=== PATIENT | male | born 1980 | race Caucasian/White ===

== ENCOUNTER 2022-07-30 13:38 | Inpatient (IN) | payer OTHER ==
[~2022-07-30] VITALS: Ht 172.7 cm; Wt 71.7 kg
[2022-07-30] MEDS ORDERED: ONDANSETRON HCL 4MG/2ML INJ IM NR (15:12)
[2022-07-30] MEDS ORDERED: ONDANSETRON HCL 4MG/2ML INJ IM STA (15:12)
[2022-07-30] MEDS ORDERED: MORPHINE SULFATE 4 MG/ML CPJ (NOT FOR IM USE) IV NR (15:12)
[2022-07-30] MEDS ORDERED: MORPHINE SULFATE 4 MG/ML CPJ (NOT FOR IM USE) IV STA (15:12)
[2022-07-30] MEDS ORDERED: SODIUM CHLORIDE 0.9% 1,000 ML IV ONE ×2 (15:15→18:00)
[2022-07-30] MEDS ORDERED: CEFTRIAXONE 2 G PREMIX 50 ML IV ONE (17:30)
[2022-07-30 17:31] LABS: HEMATOCRIT. 43.9 % (42.0-52.0); HEMOGLOBIN. 13.6 g/dL (14.0-18.0); MEAN CORPUSCULAR HEMOGLOBIN 29.6 pg (28.0-32.0); MEAN CORPUSCULAR VOLUME 95.7 fL (80.0-94.0); MEAN PLATELET VOLUME 7.1 fl (7.4-10.4); PLATELET 485 x1000/uL (130-400); RED BLOOD CELL COUNT 4.59 mill/uL (4.7-6.1)
[2022-07-30 17:35] LABS: CHLORIDE 95 mEq/L (98-107)
[2022-07-30] MEDS: OLANZAPINE 10 MG/VIAL IM ONE ×2 (18:29→19:30)
[2022-07-30 18:38] LABS: PLATELET ESTIMATE INCREASED
[2022-07-30] MEDS ORDERED: VANCOMYCIN 1G PREMIX 200 ML IV NR (18:45)
[2022-07-30] MEDS ORDERED: CLINDAMYCIN 600MG PREMIX 50 ML IV NR (19:00)
[2022-07-30] MEDS ORDERED: METOCLOPRAMIDE HCL 10MG/2ML VIAL IV ONE (19:00)
[2022-07-30] MEDS ORDERED: ETOMIDATE 2MG/ML 10ML VIAL IV ONE ×2 (20:00→21:45)
[2022-07-30] MEDS ORDERED: SUCCINYLCHOLINE CHLORIDE 200MG/10ML IV ONE (20:00)
[2022-07-30] MEDS ORDERED: FENTANYL CITRATE/PF 50MCG/ML 2ML VIAL IV ONE (20:15)
[2022-07-30] MEDS ORDERED: PROPOFOL 10MG/ML 100ML 100 ML IV ONE (20:15)
[2022-07-30] MEDS ORDERED: PROPOFOL 200MG/20ML VIAL IV ONE (20:15)
[2022-07-30] MEDS ORDERED: FENTANYL 2500MCG/250ML PMX 250 ML IV ONE (20:15)
[2022-07-30 21:23] LABS: BG BASE EXCESS -30.7 mmol/L (-2.0-2.0); BG CARBOXYHEMOGLOBIN 0.4 % (0.5-1.5); BG DEOXYHEMOGLOBIN 0.4 % (0.0-5.0); BG FRACTION INSPIRED OXYGEN 60; BG HCO3 ACT 2.5 mmol/L (22.0-26.0); BG METHEMOGLOBIN 0.6 % (0.0-1.5); BG OXYGEN SATURATION 99.6 % (92.0-98.5); BG OXYHEMOGLOBIN 98.6 % (94.0-97.0); BG PCO2 15.9 mmHg (35.0-45.0); BG PH 6.821 (7.350-7.450); BG PO2 307.2 mmHg (75.0-100.0); BG SAMPLE SITE RIGHT RADIAL; BG TOTAL HEMOGLOBIN 13.2 g/dL (12.0-18.0); BG VENT MODE VENT - AC
[2022-07-30] MEDS ORDERED: SODIUM BICARBONATE 8.4% 1 MEQ/ML 50ML SYR IV ONE (21:45)
[2022-07-30] MEDS ORDERED: SODIUM BICARBONATE 150 MEQ in DEXTROSE 5% WATER 1,000 ML IV SCH (21:45)
[2022-07-30] MEDS ORDERED: INSULIN REGULAR 100U/100ML PMX 100 ML IV NR ×2 (22:30)
[2022-07-30 22:36] LABS: BG BASE EXCESS -29.2 mmol/L (-2.0-2.0); BG CARBOXYHEMOGLOBIN 0.4 % (0.5-1.5); BG DEOXYHEMOGLOBIN 3.1 % (0.0-5.0); BG FRACTION INSPIRED OXYGEN 40; BG HCO3 ACT 2.7 mmol/L (22.0-26.0); BG METHEMOGLOBIN 0.7 % (0.0-1.5); BG OXYGEN SATURATION 96.9 % (92.0-98.5); BG OXYHEMOGLOBIN 95.8 % (94.0-97.0); BG PCO2 14.7 mmHg (35.0-45.0); BG PH 6.884 (7.350-7.450); BG PO2 124.5 mmHg (75.0-100.0); BG SAMPLE SITE LEFT BRACHIAL; BG TOTAL HEMOGLOBIN 12.9 g/dL (12.0-18.0); BG VENT MODE VENT - AC
[2022-07-30] MEDS ORDERED: PROPOFOL 10MG/ML 100ML 100 ML IV PRN (23:45)
[2022-07-31] VITALS (70 sets, daily range): BP systolic 92–154; BP diastolic 57–86
[2022-07-31 01:09] LABS: CHLORIDE 97 mEq/L (98-107)
[2022-07-31 01:26] LABS: PHOSPHORUS 8.2 mg/dL (2.5-4.9)
[2022-07-31] MEDS ORDERED: IOHEXOL-300 100 ML BOTTLE ONE (01:47)
[2022-07-31 02:04] LABS: CHLORIDE 94 mEq/L (98-107)
[2022-07-31 02:11] LABS: PHOSPHORUS 7.2 mg/dL (2.5-4.9)
[2022-07-31 04:37] LABS: BG BASE EXCESS -17.4 mmol/L (-2.0-2.0); BG CARBOXYHEMOGLOBIN 0.6 % (0.5-1.5); BG DEOXYHEMOGLOBIN 0.6 % (0.0-5.0); BG FRACTION INSPIRED OXYGEN 40; BG HCO3 ACT 7.9 mmol/L (22.0-26.0); BG METHEMOGLOBIN 0.4 % (0.0-1.5); BG OXYGEN SATURATION 99.4 % (92.0-98.5); BG OXYHEMOGLOBIN 98.4 % (94.0-97.0); BG PH 7.237 (7.350-7.450); BG PO2 178.8 mmHg (75.0-100.0); BG SAMPLE SITE LEFT BRACHIAL; BG TOTAL HEMOGLOBIN 12.7 g/dL (12.0-18.0); BG VENT MODE VENT - AC
[2022-07-31] MEDS ORDERED: SODIUM BICARBONATE 8.4% 1 MEQ/ML 50ML SYR IV NR (04:42)
[2022-07-31] MEDS ORDERED: SODIUM BICARBONATE 150 MEQ in SODIUM CHLORIDE 0.45% 1,000 ML IV SCH (04:45)
[2022-07-31] MEDS: PROPOFOL 10MG/ML 100ML 100 ML IV PRN ×4 (05:56→19:28)
[2022-07-31] MEDS: FENTANYL 2500MCG/250ML PMX 250 ML IV PRN ×2 (05:57→17:17)
[2022-07-31] MEDS ORDERED: SODIUM CHLORIDE 0.9% 1,000 ML IV SCH (07:15)
[2022-07-31 07:16] LABS: CHLORIDE 97 mEq/L (98-107)
[2022-07-31 07:33] LABS: PHOSPHORUS 3.8 mg/dL (2.5-4.9)
[2022-07-31] MEDS ORDERED: DEXTROSE 50% WATER 50ML SYRINGE IV PRN ×2 (07:45)
[2022-07-31 08:06] LABS: BG BASE EXCESS -2.9 mmol/L (-2.0-2.0); BG CARBOXYHEMOGLOBIN 0.3 % (0.5-1.5); BG DEOXYHEMOGLOBIN 1.6 % (0.0-5.0); BG FRACTION INSPIRED OXYGEN 30; BG HCO3 ACT 20.7 mmol/L (22.0-26.0); BG METHEMOGLOBIN 0.1 % (0.0-1.5); BG OXYGEN SATURATION 98.4 % (92.0-98.5); BG PCO2 32.6 mmHg (35.0-45.0); BG PH 7.421 (7.350-7.450); BG PO2 118.4 mmHg (75.0-100.0); BG SAMPLE SITE LEFT RADIAL; BG TOTAL HEMOGLOBIN 12.4 g/dL (12.0-18.0); BG TOTAL RESPIRATORY RATE 24 b/min; BG VENT MODE VENT - AC
[2022-07-31] MEDS: BLOOD SUGAR DIAGNOSTIC STRIP TEST SCH ×11 (08:29→20:56)
[2022-07-31] MEDS ORDERED: ENOXAPARIN 40MG/0.4ML SYR SUBCUT SCH (09:00)
[2022-07-31] MEDS ORDERED: PANTOPRAZOLE SODIUM 40 MG/VIAL IV SCH (09:00)
[2022-07-31] MEDS ORDERED: INSULIN REGULAR 100U/100ML PMX 100 ML IV SCH (09:00)
[2022-07-31] MEDS: VANCOMYCIN 1.25GM PMX (XELLIA) 250 ML IV SCH ×2 (09:47→21:23)
[2022-07-31 10:06] LABS: CHLORIDE 103 mEq/L (98-107)
[2022-07-31 10:13] LABS: HDL CHOLESTEROL 14 mg/dL (40-59); LDL CHOLESTEROL 52 mg/dL (5-100); TOTAL IRON BINDING CAPACITY 155 ug/dL (250-450)
[2022-07-31 10:50] LABS: VITAMIN B12 SERUM 1749 pg/mL (211-911)
[2022-07-31] MEDS ORDERED: SODIUM CHLORIDE 0.45% 1,000 ML IV SCH ×2 (11:15→16:45)
[2022-07-31 11:29] LABS: FOLIC ACID (FOLATE) SERUM > 20.00 ng/mL (>5.38)
[2022-07-31] MEDS ORDERED: POTASSIUM CHLORIDE 20MEQ TABLET SR PO NR (11:30)
[2022-07-31] MEDS ORDERED: POTASSIUM CHLORIDE INJ 40 MEQ in DEXT 5% WATER 250 ML IV ONE ×2 (11:30→17:15)
[2022-07-31] MEDS ORDERED: SODIUM CHL 0.9% + KCL 20MEQ/L 1,000 ML IV SCH (13:00)
[2022-07-31] MEDS: KCL 20MEQ/100ML X 2 FOR TOTAL KCL 40MEQ/200ML IV SCH ×4 (13:08→21:24)
[2022-07-31] MEDS: PIPERACILLIN/TAZOBACTAM 3.375G in DEXT 5% WATER 50ML IV SCH ×2 (13:08→21:23)
[2022-07-31] MEDS ORDERED: DEXT 5%/0.45% NACL 1000ML 1,000 ML IV SCH (14:30)
[2022-07-31 15:32] LABS: CLARITY URINE TURBID (CLEAR); COLOR URINE YELLOW (YELLOW); KETONES URINE 1+ (NEGATIVE); LEUKOCYTE ESTERASE URINE NEGATIVE (NEGATIVE); NITRITE URINE NEGATIVE (NEGATIVE); OCCULT BLOOD URINE TRACE (NEGATIVE); PROTEIN URINE 1+ (NEGATIVE); SPECIFIC GRAVITY URINE 1.026 (1.005-1.030); UROBILINOGEN URINE 0.2 E.U./dL (0.2-1.0)
[2022-07-31 15:48] LABS: CHLORIDE 111 mEq/L (98-107)
[2022-07-31 15:53] LABS: INR 1.2; PROTHROMBIN TIME 12.4 sec (9.6-11.0)
[2022-07-31 15:54] LABS: ETHANOL BLOOD < 10 mg/dL
[2022-07-31 16:57] LABS: *AMPHETAMINES SCREEN URINE NEGATIVE (NEGATIVE); *BARBITURATES SCREEN URINE NEGATIVE (NEGATIVE); *BENZODIAZEPINES SCREEN URINE NEGATIVE (NEGATIVE); *COCAINE SCREEN URINE NEGATIVE (NEGATIVE); CANNABINOID URINE SCREEN PRESUMTIVE POSITIVE (NEGATIVE); METHADONE URINE SCREEN NEGATIVE (NEGATIVE); OPIATES URINE SCREEN PRESUMTIVE POSITIVE (NEGATIVE); PHENCYCLIDINE URINE SCREEN NEGATIVE (NEGATIVE)
[2022-07-31] MEDS: PANTOPRAZOLE SODIUM 40 MG/VIAL IV SCH (17:15)
[2022-07-31 17:25] LABS: HEMATOCRIT. 32.2 % (42.0-52.0); HEMOGLOBIN. 11.1 g/dL (14.0-18.0); MEAN CORPUSCULAR HEMOGLOBIN 29.6 pg (28.0-32.0); MEAN CORPUSCULAR VOLUME 85.5 fL (80.0-94.0); MEAN PLATELET VOLUME 6.4 fl (7.4-10.4); PLATELET 334 x1000/uL (130-400); RED BLOOD CELL COUNT 3.76 mill/uL (4.7-6.1); RED CELL DISTRIBUTION WIDTH 13.4 % (11.6-14.6)
[2022-07-31] MEDS: INSULIN LISPRO 100 UNITS/ML SUBCUT SCH ×2 (18:20→21:24)
[2022-07-31 18:24] LABS: PLATELET ESTIMATE NORMAL
[2022-07-31] MEDS: INSULIN GLARGINE 100 UNITS/ML SUBCUT SCH (21:25)
[2022-07-31 23:46] LABS: CHLORIDE 113 mEq/L (98-107)
[2022-08-01] VITALS (37 sets, daily range): BP systolic 96–169; BP diastolic 59–98
[2022-08-01] MEDS: PROPOFOL 10MG/ML 100ML 100 ML IV PRN ×4 (00:10→20:11)
[2022-08-01] MEDS ORDERED: KCL 20MEQ/100ML PREMIX 100 ML IV NR (01:00)
[2022-08-01] MEDS: BLOOD SUGAR DIAGNOSTIC STRIP TEST SCH ×7 (02:00→21:17)
[2022-08-01] MEDS: INSULIN LISPRO 100 UNITS/ML SUBCUT SCH ×6 (02:10→21:53)
[2022-08-01] MEDS: FENTANYL 2500MCG/250ML PMX 250 ML IV PRN ×2 (04:58→17:00)
[2022-08-01] MEDS ORDERED: PROPOFOL 10MG/ML 100ML 100 ML IV PRN (05:00)
[2022-08-01 05:45] LABS: HEMATOCRIT. 33.8 % (42.0-52.0); HEMOGLOBIN. 11.5 g/dL (14.0-18.0); MEAN CORPUSCULAR HEMOGLOBIN 29.3 pg (28.0-32.0); MEAN CORPUSCULAR VOLUME 86.3 fL (80.0-94.0); MEAN PLATELET VOLUME 6.9 fl (7.4-10.4); PLATELET 339 x1000/uL (130-400); RED BLOOD CELL COUNT 3.92 mill/uL (4.7-6.1)
[2022-08-01 05:59] LABS: INR 1.1; PROTHROMBIN TIME 11.9 sec (9.6-11.0)
[2022-08-01] MEDS: PIPERACILLIN/TAZOBACTAM 3.375G in DEXT 5% WATER 50ML IV SCH ×3 (06:01→21:50)
[2022-08-01 06:06] LABS: CHLORIDE 117 mEq/L (98-107)
[2022-08-01 06:23] LABS: PHOSPHORUS 1.1 mg/dL (2.5-4.9)
[2022-08-01 07:12] LABS: PLATELET ESTIMATE NORMAL
[2022-08-01 08:23] LABS: BG BASE EXCESS 3.4 mmol/L (-2.0-2.0); BG CARBOXYHEMOGLOBIN 0.3 % (0.5-1.5); BG DEOXYHEMOGLOBIN 1.4 % (0.0-5.0); BG FRACTION INSPIRED OXYGEN 30; BG HCO3 ACT 25.5 mmol/L (22.0-26.0); BG METHEMOGLOBIN 0.3 % (0.0-1.5); BG OXYGEN SATURATION 98.6 % (92.0-98.5); BG PCO2 30.9 mmHg (35.0-45.0); BG PH 7.535 (7.350-7.450); BG PO2 129.9 mmHg (75.0-100.0); BG SAMPLE SITE RIGHT RADIAL; BG TOTAL HEMOGLOBIN 12.1 g/dL (12.0-18.0); BG VENT MODE VENT - AC
[2022-08-01] MEDS ORDERED: LORAZEPAM 2MG/ML CPJ IV NR (09:30)
[2022-08-01] MEDS: PANTOPRAZOLE SODIUM 40 MG/VIAL IV SCH ×2 (10:07→17:35)
[2022-08-01] MEDS: DEXT 5%/0.45% NACL KCL 20MEQ/L 1,000 ML IV SCH ×2 (10:07→21:50)
[2022-08-01] MEDS: INSULIN GLARGINE 100 UNITS/ML SUBCUT SCH ×2 (10:08→21:51)
[2022-08-01] MEDS: MIDAZOLAM HCL 100 MG in SODIUM CHLORIDE 0.9% 80 ML IV PRN (10:41)
[2022-08-01] MEDS: VANCOMYCIN 1.25GM PMX (XELLIA) 250 ML IV SCH (10:56)
[2022-08-01] MEDS ORDERED: VANCOMYCIN 750MG PREMIX 150 ML IV SCH (12:00)
[2022-08-01] MEDS ORDERED: BUPIVACAINE HCL/PF 0.25% (2.5MG/ML) 10ML INFIL NR (19:30)
[2022-08-01] MEDS ORDERED: LIDOCAINE HCL 1% 20ML VIAL (Pyxis) INJ INFIL NR (19:30)
[2022-08-01] MEDS ORDERED: ARIP10TA56 PO (20:29)
[2022-08-01] MEDS ORDERED: BUPR-114 PO (20:29)
[2022-08-01] MEDS ORDERED: QUET100T34 PO (20:29)
[2022-08-01] MEDS ORDERED: OXCA300T31 PO (20:29)
[2022-08-01] MEDS ORDERED: INSLIS SUBCUT (20:29)
[2022-08-01] MEDS ORDERED: HYDR-4001 PO (20:30)
[2022-08-01] MEDS ORDERED: INSU100I28 SUBCUT (20:30)
[2022-08-01] MEDS ORDERED: GABA-532 PO (20:30)
[2022-08-02] VITALS (50 sets, daily range): BP systolic 98–181; BP diastolic 25–156
[2022-08-02] MEDS: VANCOMYCIN 750MG PREMIX 150 ML IV SCH ×2 (00:13→12:12)
[2022-08-02] MEDS: BLOOD SUGAR DIAGNOSTIC STRIP TEST SCH ×6 (01:48→22:00)
[2022-08-02] MEDS: INSULIN LISPRO 100 UNITS/ML SUBCUT SCH ×6 (02:06→22:00)
[2022-08-02] MEDS: FENTANYL 2500MCG/250ML PMX 250 ML IV PRN (03:39)
[2022-08-02 05:26] LABS: HEMATOCRIT. 34.4 % (42.0-52.0); HEMOGLOBIN. 11.6 g/dL (14.0-18.0); MEAN CORPUSCULAR HEMOGLOBIN 29.4 pg (28.0-32.0); MEAN CORPUSCULAR VOLUME 87.2 fL (80.0-94.0); MEAN PLATELET VOLUME 6.6 fl (7.4-10.4); PLATELET 276 x1000/uL (130-400); RED BLOOD CELL COUNT 3.95 mill/uL (4.7-6.1)
[2022-08-02 05:29] LABS: CHLORIDE 119 mEq/L (98-107)
[2022-08-02] MEDS ORDERED: PROPOFOL 10MG/ML 100ML 100 ML IV PRN (05:30)
[2022-08-02] MEDS: PIPERACILLIN/TAZOBACTAM 3.375G in DEXT 5% WATER 50ML IV SCH ×3 (06:25→22:03)
[2022-08-02] MEDS: PROPOFOL 10MG/ML 100ML 100 ML IV PRN (07:17)
[2022-08-02] MEDS: PANTOPRAZOLE SODIUM 40 MG/VIAL IV SCH ×2 (09:11→17:00)
[2022-08-02] MEDS: KCL 20MEQ/100ML PREMIX 100 ML IV SCH ×2 (09:11→12:12)
[2022-08-02] MEDS: INSULIN GLARGINE 100 UNITS/ML SUBCUT SCH ×2 (09:12→22:00)
[2022-08-02] MEDS: MIDAZOLAM HCL 100 MG in SODIUM CHLORIDE 0.9% 80 ML IV PRN (09:17)
[2022-08-02 09:53] LABS: BG BASE EXCESS 2.5 mmol/L (-2.0-2.0); BG CARBOXYHEMOGLOBIN 0.4 % (0.5-1.5); BG DEOXYHEMOGLOBIN 1.1 % (0.0-5.0); BG FRACTION INSPIRED OXYGEN 30; BG HCO3 ACT 25.4 mmol/L (22.0-26.0); BG METHEMOGLOBIN 0.2 % (0.0-1.5); BG OXYGEN SATURATION 98.9 % (92.0-98.5); BG OXYHEMOGLOBIN 98.3 % (94.0-97.0); BG PCO2 33.6 mmHg (35.0-45.0); BG PH 7.496 (7.350-7.450); BG PO2 146.2 mmHg (75.0-100.0); BG SAMPLE SITE RIGHT RADIAL; BG TOTAL HEMOGLOBIN 12.4 g/dL (12.0-18.0); BG VENT MODE VENT - AC
[2022-08-02] MEDS ORDERED: POTASSIUM CHLORIDE INJ 40 MEQ in DEXT 5% WATER 500 ML IV NR (10:00)
[2022-08-02] MEDS ORDERED: LORAZEPAM 2MG/ML CPJ IV PRN (10:15)
[2022-08-02 10:26] LABS: PLATELET ESTIMATE NORMAL
[2022-08-02 11:10] LABS: BG BASE EXCESS 2.5 mmol/L (-2.0-2.0); BG CARBOXYHEMOGLOBIN 0.9 % (0.5-1.5); BG DEOXYHEMOGLOBIN 2.1 % (0.0-5.0); BG FRACTION INSPIRED OXYGEN 30; BG HCO3 ACT 26.7 mmol/L (22.0-26.0); BG METHEMOGLOBIN 0.2 % (0.0-1.5); BG OXYGEN SATURATION 97.9 % (92.0-98.5); BG OXYHEMOGLOBIN 96.8 % (94.0-97.0); BG PCO2 39.5 mmHg (35.0-45.0); BG PH 7.447 (7.350-7.450); BG PO2 101.3 mmHg (75.0-100.0); BG SAMPLE SITE RIGHT RADIAL; BG TOTAL HEMOGLOBIN 13.8 g/dL (12.0-18.0); BG VENT MODE MASK - CPAP
[2022-08-02] MEDS ORDERED: HALOPERIDOL LACTATE 5MG/ML VIAL IM PRN (11:30)
[2022-08-02] MEDS: HALOPERIDOL LACTATE 5MG/ML VIAL IM PRN ×2 (11:38→19:34)
[2022-08-02] MEDS: DEXTROSE 5% WATER 1,000 ML IV SCH (12:13)
[2022-08-02] MEDS ORDERED: POTASSIUM PHOS,M-BASIC-D-BASIC 30 MMOL in DEXT 5% WATER 500 ML IV ONE (12:30)
[2022-08-02] MEDS: LORAZEPAM 2MG/ML CPJ IV PRN ×3 (13:06→22:03)
[2022-08-02] MEDS ORDERED: HALOPERIDOL LACTATE 5MG/ML VIAL IM NR (13:30)
[2022-08-02] MEDS ORDERED: OLANZAPINE 10 MG/VIAL IM NR (23:00)
[2022-08-03] VITALS (11 sets, daily range): BP systolic 43–178; BP diastolic 27–95
[2022-08-03] MEDS: VANCOMYCIN 750MG PREMIX 150 ML IV SCH ×2 (00:40→12:00)
[2022-08-03] MEDS: DEXTROSE 5% WATER 1,000 ML IV SCH ×2 (00:41→15:03)
[2022-08-03] MEDS ORDERED: OLANZAPINE 10 MG/VIAL IM PRN (01:00)
[2022-08-03] MEDS: BLOOD SUGAR DIAGNOSTIC STRIP TEST SCH ×6 (02:00→21:37)
[2022-08-03] MEDS: INSULIN LISPRO 100 UNITS/ML SUBCUT SCH ×6 (02:00→21:39)
[2022-08-03] MEDS: HALOPERIDOL LACTATE 5MG/ML VIAL IM PRN ×3 (04:12→21:37)
[2022-08-03 06:36] LABS: BASOPHILS % 0.5 % (0.0-2.0); EOSINOPHILS % 0.9 % (0.0-5.0); HEMATOCRIT. 34.2 % (42.0-52.0); HEMOGLOBIN. 11.4 g/dL (14.0-18.0); LYMPHOCYTES % 21.3 % (20.0-50.0); MEAN CORPUSCULAR HEMOGLOBIN 29.1 pg (28.0-32.0); MEAN CORPUSCULAR VOLUME 87.2 fL (80.0-94.0); MONOCYTES % 8.3 % (2.0-8.0); PLATELET 286 x1000/uL (130-400); RED BLOOD CELL COUNT 3.92 mill/uL (4.7-6.1); RED CELL DISTRIBUTION WIDTH 13.9 % (11.6-14.6)
[2022-08-03] MEDS: PIPERACILLIN/TAZOBACTAM 3.375G in DEXT 5% WATER 50ML IV SCH ×3 (06:41→21:37)
[2022-08-03 06:45] LABS: CHLORIDE 111 mEq/L (98-107)
[2022-08-03 06:56] LABS: PHOSPHORUS 3.5 mg/dL (2.5-4.9)
[2022-08-03] MEDS: RISPERIDONE 1MG TABLET PO SCH (07:02)
[2022-08-03] MEDS: PANTOPRAZOLE SODIUM 40 MG/VIAL IV SCH ×2 (08:45→18:34)
[2022-08-03] MEDS: LORAZEPAM 2MG/ML CPJ IV PRN ×3 (08:45→19:59)
[2022-08-03] MEDS ORDERED: RISPERIDONE 1MG TABLET PO SCH (09:00)
[2022-08-03] MEDS: KCL 20MEQ/100ML PREMIX 100 ML IV SCH ×2 (11:12→15:10)
[2022-08-03] MEDS: INSULIN GLARGINE 100 UNITS/ML SUBCUT SCH ×2 (11:13→21:38)
[2022-08-03] MEDS ORDERED: MAGNESIUM 1 G PREMIX 100 ML IV NR (15:00)
[2022-08-04] VITALS (10 sets, daily range): BP systolic 131–179; BP diastolic 67–114
[2022-08-04] MEDS: VANCOMYCIN 750MG PREMIX 150 ML IV SCH ×2 (00:01→11:32)
[2022-08-04] MEDS: LORAZEPAM 2MG/ML CPJ IV PRN ×3 (02:37→22:17)
[2022-08-04 05:49] LABS: BASOPHILS % 0.5 % (0.0-2.0); EOSINOPHILS % 1.5 % (0.0-5.0); HEMATOCRIT. 37.7 % (42.0-52.0); HEMOGLOBIN. 12.8 g/dL (14.0-18.0); LYMPHOCYTES % 23.8 % (20.0-50.0); MEAN CORPUSCULAR HEMOGLOBIN 29.3 pg (28.0-32.0); MEAN CORPUSCULAR VOLUME 86.2 fL (80.0-94.0); MEAN PLATELET VOLUME 7.3 fl (7.4-10.4); MONOCYTES % 9.3 % (2.0-8.0); NEUTROPHILS % 64.9 % (40.0-76.0); PLATELET 388 x1000/uL (130-400); RED BLOOD CELL COUNT 4.37 mill/uL (4.7-6.1); RED CELL DISTRIBUTION WIDTH 13.1 % (11.6-14.6)
[2022-08-04] MEDS: PIPERACILLIN/TAZOBACTAM 3.375G in DEXT 5% WATER 50ML IV SCH ×2 (05:54→13:27)
[2022-08-04 05:58] LABS: CHLORIDE 104 mEq/L (98-107)
[2022-08-04] MEDS: RISPERIDONE 1MG TABLET PO SCH ×2 (06:10→08:00)
[2022-08-04] MEDS: BLOOD SUGAR DIAGNOSTIC STRIP TEST SCH ×4 (07:51→21:00)
[2022-08-04] MEDS: PANTOPRAZOLE SODIUM 40 MG/VIAL IV SCH (08:00)
[2022-08-04] MEDS: INSULIN LISPRO 100 UNITS/ML SUBCUT SCH ×4 (08:01→22:04)
[2022-08-04] MEDS: INSULIN GLARGINE 100 UNITS/ML SUBCUT SCH ×2 (09:07→22:10)
[2022-08-04] MEDS ORDERED: QUETIAPINE FUMARATE 50MG TABLET PO SCH (12:00)
[2022-08-04] MEDS: OXCARBAZEPINE 300MG TABLET PO SCH ×2 (12:10→22:02)
[2022-08-04] MEDS: ARIPIPRAZOLE 5MG TABLET PO SCH (12:10)
[2022-08-04] MEDS: PANTOPRAZOLE 40MG DR TABLET PO SCH (13:27)
[2022-08-04] MEDS: GABAPENTIN 300MG CAPSULE PO SCH ×2 (13:27→22:01)
[2022-08-04] MEDS: LACTULOSE 20G/30ML UDC PO SCH ×2 (13:27→22:03)
[2022-08-04] MEDS: HYDROCODONE/ACETAMINOPHEN 5/325MG TABLET PO PRN (17:52)
[2022-08-04] MEDS ORDERED: NALOXONE HCL 0.4MG/ML VIAL IV PRN (18:00)
[2022-08-04] MEDS ORDERED: QUETIAPINE FUMARATE 25MG TABLET PO SCH (21:00)
[2022-08-04] MEDS: QUETIAPINE FUMARATE 50MG TABLET PO SCH (22:09)
[2022-08-04] MEDS: MORPHINE SULFATE 2 MG/ML CPJ (NOT FOR IM USE) IV PRN (22:17)
[2022-08-05] VITALS: BP 143/90
[2022-08-05] MEDS: VANCOMYCIN 750MG PREMIX 150 ML IV SCH ×3 (01:10→23:25)
[2022-08-05 04:00] VITALS: BP 139/86
[2022-08-05] MEDS: LACTULOSE 20G/30ML UDC PO SCH ×2 (05:59→17:56)
[2022-08-05] MEDS: GABAPENTIN 300MG CAPSULE PO SCH ×3 (05:59→22:04)
[2022-08-05] MEDS: INSULIN LISPRO 100 UNITS/ML SUBCUT SCH ×5 (06:02→21:59)
[2022-08-05] MEDS: PANTOPRAZOLE 40MG DR TABLET PO SCH (06:20)
[2022-08-05] MEDS: BLOOD SUGAR DIAGNOSTIC STRIP TEST SCH ×4 (06:32→21:00)
[2022-08-05 07:21] LABS: BASOPHILS % 0.9 % (0.0-2.0); HEMATOCRIT. 35.8 % (42.0-52.0); HEMOGLOBIN. 12.1 g/dL (14.0-18.0); LYMPHOCYTES % 20.1 % (20.0-50.0); MEAN CORPUSCULAR HEMOGLOBIN 29.1 pg (28.0-32.0); MEAN CORPUSCULAR VOLUME 86.4 fL (80.0-94.0); MEAN PLATELET VOLUME 7.3 fl (7.4-10.4); MONOCYTES % 8.4 % (2.0-8.0); NEUTROPHILS % 68.6 % (40.0-76.0); PLATELET 376 x1000/uL (130-400); RED BLOOD CELL COUNT 4.14 mill/uL (4.7-6.1); RED CELL DISTRIBUTION WIDTH 13.5 % (11.6-14.6)
[2022-08-05 08:00] VITALS: BP 136/85
[2022-08-05 08:01] LABS: CHLORIDE 99 mEq/L (98-107)
[2022-08-05] MEDS: OXCARBAZEPINE 300MG TABLET PO SCH ×2 (08:50→22:04)
[2022-08-05] MEDS: ARIPIPRAZOLE 5MG TABLET PO SCH (08:50)
[2022-08-05] MEDS: INSULIN GLARGINE 100 UNITS/ML SUBCUT SCH ×2 (10:34→22:21)
[2022-08-05 12:00] VITALS: BP 118/72
[2022-08-05 16:00] VITALS: BP 133/78
[2022-08-05 20:00] VITALS: BP 132/69
[2022-08-05] MEDS: INSULIN LISPRO 100 UNITS/ML SUBCUT NR ×2 (22:01→22:20)
[2022-08-05] MEDS: QUETIAPINE FUMARATE 50MG TABLET PO SCH (22:03)
[2022-08-05] MEDS: MORPHINE SULFATE 2 MG/ML CPJ (NOT FOR IM USE) IV PRN (23:25)
[2022-08-06] VITALS (7 sets, daily range): BP systolic 117–158; BP diastolic 60–83
[2022-08-06] MEDS: GABAPENTIN 300MG CAPSULE PO SCH ×3 (05:14→21:25)
[2022-08-06] MEDS: MORPHINE SULFATE 2 MG/ML CPJ (NOT FOR IM USE) IV PRN ×4 (05:23→22:39)
[2022-08-06] MEDS: BLOOD SUGAR DIAGNOSTIC STRIP TEST SCH ×4 (06:21→21:25)
[2022-08-06] MEDS: PANTOPRAZOLE 40MG DR TABLET PO SCH (06:22)
[2022-08-06 06:45] LABS: BASOPHILS % 0.6 % (0.0-2.0); HEMATOCRIT. 35.4 % (42.0-52.0); HEMOGLOBIN. 12.4 g/dL (14.0-18.0); LYMPHOCYTES % 17.5 % (20.0-50.0); MEAN CORPUSCULAR HEMOGLOBIN 29.7 pg (28.0-32.0); MEAN CORPUSCULAR VOLUME 85.2 fL (80.0-94.0); MEAN PLATELET VOLUME 7.1 fl (7.4-10.4); NEUTROPHILS % 68.9 % (40.0-76.0); PLATELET 428 x1000/uL (130-400); RED BLOOD CELL COUNT 4.16 mill/uL (4.7-6.1); RED CELL DISTRIBUTION WIDTH 13.6 % (11.6-14.6)
[2022-08-06] MEDS: INSULIN LISPRO 100 UNITS/ML SUBCUT SCH ×7 (07:20→21:00)
[2022-08-06] MEDS: OXCARBAZEPINE 300MG TABLET PO SCH ×2 (08:23→21:25)
[2022-08-06] MEDS: ARIPIPRAZOLE 5MG TABLET PO SCH (08:23)
[2022-08-06] MEDS: LACTULOSE 20G/30ML UDC PO SCH ×2 (09:00→17:34)
[2022-08-06] MEDS: INSULIN GLARGINE 100 UNITS/ML SUBCUT SCH ×2 (10:00→22:40)
[2022-08-06 10:41] LABS: CHLORIDE 99 mEq/L (98-107)
[2022-08-06] MEDS: VANCOMYCIN 750MG PREMIX 150 ML IV SCH (12:00)
[2022-08-06] MEDS: QUETIAPINE FUMARATE 50MG TABLET PO SCH (21:25)
[2022-08-06] MEDS: HYDROCODONE/ACETAMINOPHEN 5/325MG TABLET PO PRN (21:27)
[2022-08-07] VITALS: BP 125/86
[2022-08-07] MEDS: VANCOMYCIN 750MG PREMIX 150 ML IV SCH ×3 (00:52→23:54)
[2022-08-07] MEDS: MORPHINE SULFATE 2 MG/ML CPJ (NOT FOR IM USE) IV PRN ×5 (03:55→23:58)
[2022-08-07 04:00] VITALS: BP 125/74
[2022-08-07] MEDS: BLOOD SUGAR DIAGNOSTIC STRIP TEST SCH ×4 (06:23→21:39)
[2022-08-07] MEDS: GABAPENTIN 300MG CAPSULE PO SCH ×3 (06:23→21:32)
[2022-08-07 08:00] VITALS: BP 142/74
[2022-08-07] MEDS: FAMOTIDINE 20MG TABLET PO SCH ×2 (08:40→21:32)
[2022-08-07] MEDS: LACTULOSE 20G/30ML UDC PO SCH ×2 (08:40→17:00)
[2022-08-07] MEDS: OXCARBAZEPINE 300MG TABLET PO SCH ×2 (08:40→21:33)
[2022-08-07] MEDS: ARIPIPRAZOLE 5MG TABLET PO SCH (09:00)
[2022-08-07] MEDS: INSULIN GLARGINE 100 UNITS/ML SUBCUT SCH ×2 (10:00→21:41)
[2022-08-07 12:00] VITALS: BP 149/90
[2022-08-07] MEDS: INSULIN LISPRO 100 UNITS/ML SUBCUT SCH ×5 (12:20→21:41)
[2022-08-07] MEDS: BUPROPION HCL 100MG SR TABLET PO SCH (13:16)
[2022-08-07 16:00] VITALS: BP 149/84
[2022-08-07 20:00] VITALS: BP 118/87
[2022-08-07] MEDS: QUETIAPINE FUMARATE 50MG TABLET PO SCH (21:32)
[2022-08-07] MEDS: HYDROCODONE/ACETAMINOPHEN 5/325MG TABLET PO PRN (21:34)
[2022-08-08] VITALS: BP 140/87
[2022-08-08 04:00] VITALS: BP 126/83
[2022-08-08] MEDS: HYDROCODONE/ACETAMINOPHEN 5/325MG TABLET PO PRN ×3 (05:42→20:00)
[2022-08-08] MEDS: GABAPENTIN 300MG CAPSULE PO SCH ×3 (05:42→22:06)
[2022-08-08] MEDS: BLOOD SUGAR DIAGNOSTIC STRIP TEST SCH ×4 (05:42→20:14)
[2022-08-08] MEDS: INSULIN LISPRO 100 UNITS/ML SUBCUT SCH ×7 (07:20→20:15)
[2022-08-08 08:00] VITALS: BP 127/76
[2022-08-08] MEDS: FAMOTIDINE 20MG TABLET PO SCH ×2 (09:12→22:05)
[2022-08-08] MEDS: OXCARBAZEPINE 300MG TABLET PO SCH ×2 (09:12→22:05)
[2022-08-08] MEDS: ARIPIPRAZOLE 5MG TABLET PO SCH (09:13)
[2022-08-08] MEDS: LACTULOSE 20G/30ML UDC PO SCH ×2 (09:14→18:03)
[2022-08-08] MEDS: BUPROPION HCL 100MG SR TABLET PO SCH (09:14)
[2022-08-08] MEDS: INSULIN GLARGINE 100 UNITS/ML SUBCUT SCH ×2 (09:20→22:05)
[2022-08-08] MEDS: MORPHINE SULFATE 2 MG/ML CPJ (NOT FOR IM USE) IV PRN ×3 (10:14→22:07)
[2022-08-08 12:00] VITALS: BP 142/86
[2022-08-08] MEDS: VANCOMYCIN 750MG PREMIX 150 ML IV SCH ×2 (13:05→23:40)
[2022-08-08 16:00] VITALS: BP 91/67
[2022-08-08] MEDS: QUETIAPINE FUMARATE 50MG TABLET PO SCH (22:06)
[2022-08-09] MEDS: MORPHINE SULFATE 2 MG/ML CPJ (NOT FOR IM USE) IV PRN ×4 (02:41→20:05)
[2022-08-09] MEDS: HYDROCODONE/ACETAMINOPHEN 5/325MG TABLET PO PRN ×2 (06:12→13:07)
[2022-08-09] MEDS: GABAPENTIN 300MG CAPSULE PO SCH ×3 (06:12→21:18)
[2022-08-09] MEDS ORDERED: LIDOCAINE HCL 1% 10 MG/ML 10ML VIAL ONE ×2 (06:27→07:27)
[2022-08-09] MEDS ORDERED: POLYMYXIN B SULFATE 500000 UNITS/VIAL ONE (06:27)
[2022-08-09] MEDS ORDERED: BUPIVACAINE HCL/PF 0.5% (5MG/ML) 10ML ONE (06:27)
[2022-08-09 07:16] LABS: HEMATOCRIT. 33.9 % (42.0-52.0); HEMOGLOBIN. 11.4 g/dL (14.0-18.0); MEAN CORPUSCULAR VOLUME 86.1 fL (80.0-94.0); MEAN PLATELET VOLUME 7.3 fl (7.4-10.4); PLATELET 563 x1000/uL (130-400); RED BLOOD CELL COUNT 3.94 mill/uL (4.7-6.1); RED CELL DISTRIBUTION WIDTH 13.4 % (11.6-14.6)
[2022-08-09] MEDS: BLOOD SUGAR DIAGNOSTIC STRIP TEST SCH ×4 (07:20→20:16)
[2022-08-09] MEDS: INSULIN LISPRO 100 UNITS/ML SUBCUT SCH ×7 (07:20→20:16)
[2022-08-09 07:24] LABS: CHLORIDE 98 mEq/L (98-107)
[2022-08-09] MEDS ORDERED: PROPOFOL 200MG/20ML VIAL IV ONE (07:27)
[2022-08-09] MEDS ORDERED: MIDAZOLAM HCL 5 MG/5 ML VIAL ONE (07:28)
[2022-08-09] MEDS ORDERED: FENTANYL CITRATE/PF 50MCG/ML 5ML VIAL ONE (07:28)
[2022-08-09 07:36] LABS: PHOSPHORUS 3.9 mg/dL (2.5-4.9)
[2022-08-09 08:00] VITALS: BP 129/81
[2022-08-09] MEDS: ARIPIPRAZOLE 5MG TABLET PO SCH (09:00)
[2022-08-09] MEDS: LACTULOSE 20G/30ML UDC PO SCH ×2 (09:00→18:37)
[2022-08-09] MEDS: FAMOTIDINE 20MG TABLET PO SCH ×2 (09:00→20:04)
[2022-08-09] MEDS: BUPROPION HCL 150MG SR TABLET PO SCH (09:00)
[2022-08-09] MEDS: OXCARBAZEPINE 300MG TABLET PO SCH ×2 (09:00→20:17)
[2022-08-09] MEDS: INSULIN GLARGINE 100 UNITS/ML SUBCUT SCH ×2 (09:11→21:18)
[2022-08-09] MEDS ORDERED: LANTUSUD SUBCUT (09:47)
[2022-08-09] MEDS ORDERED: LACT10SO7 PO (09:47)
[2022-08-09] MEDS ORDERED: FAMO20TA8 PO (09:47)
[2022-08-09] MEDS ORDERED: SULF1TAB48 MT (09:49)
[2022-08-09] MEDS ORDERED: AMOX1TAB16 MT (09:49)
[2022-08-09] MEDS: HALOPERIDOL LACTATE 5MG/ML VIAL IM PRN ×2 (11:16→23:25)
[2022-08-09] MEDS: VANCOMYCIN 750MG PREMIX 150 ML IV SCH ×2 (13:06→23:15)
[2022-08-09 13:31] LABS: PLATELET ESTIMATE INCREASED
[2022-08-09 16:00] VITALS: BP 130/72
[2022-08-09 20:00] VITALS: BP 137/92
[2022-08-09] MEDS: QUETIAPINE FUMARATE 50MG TABLET PO SCH (20:04)
[2022-08-09] MEDS ORDERED: NALOXONE HCL 0.4MG/ML VIAL IV PRN (22:15)
[2022-08-09] MEDS ORDERED: HYDROCODONE/ACETAMINOPHEN 5/325MG TABLET PO PRN (22:15)
[2022-08-10] VITALS: BP 118/66
[2022-08-10] MEDS: MORPHINE SULFATE 2 MG/ML CPJ (NOT FOR IM USE) IV PRN ×2 (00:19→06:27)
[2022-08-10 04:00] VITALS: BP 114/53
[2022-08-10] MEDS: GABAPENTIN 300MG CAPSULE PO SCH ×2 (06:33→14:34)
[2022-08-10] MEDS: INSULIN LISPRO 100 UNITS/ML SUBCUT SCH ×5 (06:33→12:20)
[2022-08-10] MEDS: BLOOD SUGAR DIAGNOSTIC STRIP TEST SCH ×2 (06:45→12:20)
[2022-08-10] MEDS ORDERED: HYDR-4001 MT (08:15)
[2022-08-10] MEDS: FAMOTIDINE 20MG TABLET PO SCH (09:05)
[2022-08-10] MEDS: LACTULOSE 20G/30ML UDC PO SCH (09:05)
[2022-08-10] MEDS: ARIPIPRAZOLE 5MG TABLET PO SCH (09:05)
[2022-08-10] MEDS: OXCARBAZEPINE 300MG TABLET PO SCH (09:05)
[2022-08-10] MEDS: BUPROPION HCL 150MG SR TABLET PO SCH (09:07)
[2022-08-10] MEDS: INSULIN GLARGINE 100 UNITS/ML SUBCUT SCH (10:00)
[2022-08-10 11:41] LABS: CHLORIDE 97 mEq/L (98-107)
[2022-08-10] MEDS: VANCOMYCIN 750MG PREMIX 150 ML IV SCH (12:00)
[2022-08-10 13:23] VITALS: BP 114/53
== END 2022-08-10 14:55 | disposition home or self-care (01) | DRG 710 ==
LOC: ER 13:38 → EDBEDREQ 18:51 → EDBEDREQTM 18:51 → EDBEDREQSVC 18:51 → EDBEDREQ 22:12 → EDBEDREQTM 22:12 → EDBEDREQSVC 22:14 → MICUSO 23:29 → CVICU 07-31 03:45 → 6EST 08-04 20:57
PROVIDERS: ADMIT Internal Medicine; ATTEND Internal Medicine
PROC: 06HY33Z Insertion of Infusion Device into Lower Vein, Percutaneous Approach (ICD-10-PCS; 2022-07-30)
PROC: B54BZZA Ultrasonography of Right Lower Extremity Veins, Guidance (ICD-10-PCS; 2022-07-30)
PROC: 5A1945Z Respiratory Ventilation, 24-96 Consecutive Hours (ICD-10-PCS; 2022-07-30)
PROC: 0BH17EZ Insertion of Endotracheal Airway into Trachea, Via Natural or Artificial Opening (ICD-10-PCS; 2022-07-30)
PROC: 0LBV0ZZ Excision of Right Foot Tendon, Open Approach (ICD-10-PCS; principal; 2022-08-09)
PROC: 0LBW0ZZ Excision of Left Foot Tendon, Open Approach (ICD-10-PCS; 2022-08-09)
PROC: 0Y6R0Z0 Detachment at Right 2nd Toe, Complete, Open Approach (ICD-10-PCS; 2022-08-09)
DX: A41.9 Sepsis, unspecified organism (principal); J96.00 Acute respiratory failure, unspecified whether with hypoxia or hypercapnia; R57.1 Hypovolemic shock; E43 Unspecified severe protein-calorie malnutrition; E11.10 Type 2 diabetes mellitus with ketoacidosis without coma; E83.39 Other disorders of phosphorus metabolism; K92.2 Gastrointestinal hemorrhage, unspecified; E11.621 Type 2 diabetes mellitus with foot ulcer; E83.41 Hypermagnesemia; D53.9 Nutritional anemia, unspecified; E11.51 Type 2 diabetes mellitus with diabetic peripheral angiopathy without gangrene; D75.839 Thrombocytosis, unspecified; E87.5 Hyperkalemia; E11.65 Type 2 diabetes mellitus with hyperglycemia; L97.519 Non-pressure chronic ulcer of other part of right foot with unspecified severity; L97.529 Non-pressure chronic ulcer of other part of left foot with unspecified severity; E87.0 Hyperosmolality and hypernatremia; R79.89 Other specified abnormal findings of blood chemistry; R16.0 Hepatomegaly, not elsewhere classified; E87.6 Hypokalemia; F20.9 Schizophrenia, unspecified; F31.9 Bipolar disorder, unspecified; Z68.24 Body mass index [BMI] 24.0-24.9, adult; Z78.1 Physical restraint status; Z79.4 Long term (current) use of insulin; Z85.07 Personal history of malignant neoplasm of pancreas; Z85.118 Personal history of other malignant neoplasm of bronchus and lung; Z87.891 Personal history of nicotine dependence
CPT/HCPCS: 31500; 36415; 36600; 71045; 73630; 74176; 74177; 80048; 80053; 80061; 80076; 80202; 80305; 80320; 81003; 82010; 82140; 82375; 82607; 82728; 82746; 82805; 82962; 83036; 83540; 83550; 83605; 83735; 84100; 84145; 84443; 84478; 84681; 85018; 85025; 85044; 86301; 87070; 87077; 87186; 87426; 93005; 93306; 93923; 93970; 94002; 94003; 97162; 97164; 97166; 99291; A6261; C9113; J0696; J1630; J1650; J1815; J2060; J2250; J2270; J2405; J2543; J2704; J2765; J3010; J3370; J3475; J3480; J3490; J7030; J7050; J7060; J7070; Q9967; A4315; G0480

== ENCOUNTER 2022-10-19 11:34 | Inpatient (IN) | payer OTHER ==
[2022-10-18] MEDS: ENOXAPARIN 40MG/0.4ML SYR SUBCUT SCH (23:54)
[~2022-10-19] VITALS: Ht 167.6 cm; Wt 64.5 kg
[2022-10-19] MEDS: BLOOD SUGAR DIAGNOSTIC STRIP TEST SCH ×2 (00:03→22:48)
[~2022-10-19 11:34] MED LIST: AMOX1TAB16 MT; ARIP10TA56 PO; BUPR-114 PO; FAMO20TA8 PO; GABA-532 PO; HYDR-4001 MT; LACT10SO7 PO; LANTUSUD SUBCUT; OXCA300T31 PO; QUET100T34 PO; SULF1TAB48 MT
[2022-10-19] MEDS ORDERED: SODIUM CHLORIDE 0.9% 1000ML BAG (SEPSIS BOLUS) IV ONE (14:30)
[2022-10-19] MEDS ORDERED: VANCOMYCIN 1G PREMIX 200 ML IV ONE (14:30)
[2022-10-19] MEDS ORDERED: PIPERACILLIN/TAZ 3.375G PREMIX 50 ML IV ONE (14:30)
[2022-10-19 14:45] LABS: BG BASE EXCESS -4.7 mmol/L (-2.0-2.0); BG CARBOXYHEMOGLOBIN 1.3 % (0.5-1.5); BG DEOXYHEMOGLOBIN 3.1 % (0.0-5.0); BG FRACTION INSPIRED OXYGEN 21; BG HCO3 ACT 19.6 mmol/L (22.0-26.0); BG METHEMOGLOBIN 0.1 % (0.0-1.5); BG OXYGEN SATURATION 96.9 % (92.0-98.5); BG OXYHEMOGLOBIN 95.5 % (94.0-97.0); BG PCO2 33.6 mmHg (35.0-45.0); BG PH 7.383 (7.350-7.450); BG PO2 93.5 mmHg (75.0-100.0); BG SAMPLE SITE LEFT BRACHIAL; BG TOTAL HEMOGLOBIN 12.5 g/dL (12.0-18.0); BG VENT MODE ROOM AIR
[2022-10-19 15:49] LABS: HEMATOCRIT. 38.3 % (42.0-52.0); HEMOGLOBIN. 11.7 g/dL (14.0-18.0); MEAN CORPUSCULAR HEMOGLOBIN 26.1 pg (28.0-32.0); MEAN CORPUSCULAR VOLUME 85.6 fL (80.0-94.0); MEAN PLATELET VOLUME 6.8 fl (7.4-10.4); PLATELET 537 x1000/uL (130-400); RED BLOOD CELL COUNT 4.47 mill/uL (4.7-6.1)
[2022-10-19 15:56] LABS: PROTHROMBIN TIME 10.9 sec (9.6-11.0)
[2022-10-19 15:57] LABS: CHLORIDE 82 mEq/L (98-107)
[2022-10-19] MEDS ORDERED: HALOPERIDOL LACTATE 5MG/ML VIAL IM ONE (16:00)
[2022-10-19 16:11] LABS: ETHANOL BLOOD < 10 mg/dL
[2022-10-19 16:15] LABS: CLARITY URINE CLEAR (CLEAR); COLOR URINE YELLOW (YELLOW); KETONES URINE 3+ (NEGATIVE); LEUKOCYTE ESTERASE URINE NEGATIVE (NEGATIVE); NITRITE URINE NEGATIVE (NEGATIVE); OCCULT BLOOD URINE NEGATIVE (NEGATIVE); PROTEIN URINE NEGATIVE (NEGATIVE); SPECIFIC GRAVITY URINE 1.029 (1.005-1.030); UROBILINOGEN URINE 0.2 E.U./dL (0.2-1.0)
[2022-10-19] MEDS ORDERED: INSULIN REGULAR (HUMULIN R) 300UNITS/3ML VIAL IV ONE (16:30)
[2022-10-19] MEDS ORDERED: IOHEXOL-300 100 ML BOTTLE ONE (17:32)
[2022-10-19 17:42] LABS: PLATELET ESTIMATE INCREASED
[2022-10-19 17:53] LABS: *AMPHETAMINES SCREEN URINE NEGATIVE (NEGATIVE); *BARBITURATES SCREEN URINE NEGATIVE (NEGATIVE); *BENZODIAZEPINES SCREEN URINE NEGATIVE (NEGATIVE); *COCAINE SCREEN URINE NEGATIVE (NEGATIVE); CANNABINOID URINE SCREEN NEGATIVE (NEGATIVE); METHADONE URINE SCREEN NEGATIVE (NEGATIVE); OPIATES URINE SCREEN NEGATIVE (NEGATIVE); PHENCYCLIDINE URINE SCREEN NEGATIVE (NEGATIVE)
[2022-10-19] MEDS ORDERED: LORAZEPAM 2MG/ML CPJ IV ONE (18:30)
[2022-10-19] MEDS ORDERED: IPRATROPIUM/ALBUTEROL 0.5-3(2.5)MG/3ML NEB NEB PRN (20:15)
[2022-10-19] MEDS ORDERED: ONDANSETRON HCL 4MG/2ML INJ IV PRN (20:15)
[2022-10-19] MEDS ORDERED: ACETAMINOPHEN 650MG SUPP PR PRN ×2 (20:15)
[2022-10-19] MEDS ORDERED: INSULIN REGULAR (HUMULIN R) 300UNITS/3ML VIAL IV PRN (20:30)
[2022-10-19] MEDS ORDERED: DEXTROSE 50% WATER 50ML SYRINGE IV PRN ×2 (20:30→21:15)
[2022-10-19] MEDS ORDERED: SODIUM CHLORIDE 0.45% 1,000 ML IV SCH (20:30)
[2022-10-19] MEDS ORDERED: ARIPIPRAZOLE PO SCH (20:45)
[2022-10-19] MEDS ORDERED: HALOPERIDOL LACTATE 5MG/ML VIAL IM PRN (20:45)
[2022-10-19] MEDS ORDERED: HYDRALAZINE 20MG/ML VIAL IV PRN (20:45)
[2022-10-19] MEDS ORDERED: INSULIN REGULAR 100U/100ML PMX 100 ML IV SCH (21:00)
[2022-10-19] MEDS ORDERED: MEDICATION NOT ON FORMULARY EA (Quetiapine Fumarate 1 TAB) PO SCH (21:00)
[2022-10-19] MEDS ORDERED: MAGNESIUM 1 G PREMIX 100 ML IV PRN (21:00)
[2022-10-19] MEDS: HALOPERIDOL LACTATE 5MG/ML VIAL IM PRN (21:35)
[2022-10-19] MEDS ORDERED: LORAZEPAM 2MG/ML CPJ IV NR (21:41)
[2022-10-19] MEDS ORDERED: HALOPERIDOL LACTATE 5MG/ML VIAL IM NR (21:42)
[2022-10-19] MEDS ORDERED: DIPHENHYDRAMINE 50MG/ML VIAL IV NR (21:42)
[2022-10-19] MEDS ORDERED: VANCOMYCIN 750MG PREMIX 150 ML IV SCH (22:00)
[2022-10-19 22:41] LABS: CHLORIDE 94 mEq/L (98-107)
[2022-10-19 22:53] LABS: CREATINE KINASE 30 IU/L (39-308); CREATINE KINASE MB FRACTION 2.3 ng/mL (0.5-3.6); PHOSPHORUS 4.2 mg/dL (2.5-4.9); TOTAL IRON BINDING CAPACITY 251 ug/dL (250-450)
[2022-10-19] MEDS: SODIUM CHLORIDE 0.9% 1,000 ML IV SCH (23:04)
[2022-10-19] MEDS: KCL 20MEQ/100ML PREMIX 100 ML IV PRN (23:12)
[2022-10-19] MEDS: LACTULOSE 20G/30ML UDC PO SCH (23:37)
[2022-10-19] MEDS: OXCARBAZEPINE 300MG TABLET PO SCH (23:37)
[2022-10-19] MEDS: GABAPENTIN 300MG CAPSULE PO SCH (23:37)
[2022-10-20] VITALS (12 sets, daily range): BP systolic 92–153; BP diastolic 57–87
[2022-10-20] MEDS: BLOOD SUGAR DIAGNOSTIC STRIP TEST SCH ×23 (00:17→23:10)
[2022-10-20] MEDS: PIPERACILLIN/TAZ 3.375G PREMIX 50 ML IV SCH ×2 (01:22→04:45)
[2022-10-20] MEDS: FAMOTIDINE 20MG/2ML VIAL IV SCH ×2 (01:23→23:02)
[2022-10-20 01:27] LABS: CHLORIDE 100 mEq/L (98-107)
[2022-10-20 01:33] LABS: PHOSPHORUS 2.9 mg/dL (2.5-4.9)
[2022-10-20 03:08] LABS: CHLORIDE 100 mEq/L (98-107)
[2022-10-20 03:11] LABS: PHOSPHORUS 2.3 mg/dL (2.5-4.9)
[2022-10-20] MEDS: HALOPERIDOL LACTATE 5MG/ML VIAL IM PRN ×3 (03:13→12:56)
[2022-10-20] MEDS: KCL 20MEQ/100ML PREMIX 100 ML IV PRN ×2 (03:59→23:02)
[2022-10-20] MEDS: SODIUM CHLORIDE 0.9% 1,000 ML IV SCH (04:30)
[2022-10-20] MEDS ORDERED: POTASSIUM PHOS,M-BASIC-D-BASIC 20 MMOL in DEXT 5% WATER 243.3333 ML IV NR (04:45)
[2022-10-20] MEDS: DEXT 5%/0.45% NACL 1000ML 1,000 ML IV PRN ×2 (05:25→23:49)
[2022-10-20] MEDS: GABAPENTIN 300MG CAPSULE PO SCH ×2 (06:00→21:17)
[2022-10-20] MEDS ORDERED: LIDOCAINE HCL/PF 1% 10 MG/ML 5ML VIAL ONE (07:46)
[2022-10-20] MEDS: ARIPIPRAZOLE 5MG TABLET PO SCH (09:00)
[2022-10-20] MEDS: ASPIRIN 81MG EC TABLET PO SCH (09:00)
[2022-10-20] MEDS: OXCARBAZEPINE 300MG TABLET PO SCH ×2 (09:00→20:16)
[2022-10-20 10:08] LABS: BASOPHILS % 0.7 % (0.0-2.0); EOSINOPHILS % 0.8 % (0.0-5.0); HEMATOCRIT. 34.4 % (42.0-52.0); LYMPHOCYTES % 10.7 % (20.0-50.0); MEAN CORPUSCULAR HEMOGLOBIN 25.6 pg (28.0-32.0); MEAN CORPUSCULAR VOLUME 80.1 fL (80.0-94.0); MEAN PLATELET VOLUME 6.4 fl (7.4-10.4); MONOCYTES % 9.1 % (2.0-8.0); NEUTROPHILS % 78.7 % (40.0-76.0); PLATELET 416 x1000/uL (130-400); RED BLOOD CELL COUNT 4.29 mill/uL (4.7-6.1); RED CELL DISTRIBUTION WIDTH 14.5 % (11.6-14.6)
[2022-10-20 10:26] LABS: CHLORIDE 102 mEq/L (98-107)
[2022-10-20 10:33] LABS: CREATINE KINASE 251 IU/L (39-308); CREATINE KINASE MB FRACTION 6.2 ng/mL (0.5-3.6)
[2022-10-20 10:45] LABS: HDL CHOLESTEROL 22 mg/dL (40-59); LDL CHOLESTEROL 47 mg/dL (5-100); PHOSPHORUS 1.6 mg/dL (2.5-4.9); T4 FREE 1.11 ng/dL (0.76-1.46)
[2022-10-20] MEDS: KCL 20MEQ/100ML PREMIX 100 ML IV SCH ×2 (12:00→14:00)
[2022-10-20 12:13] LABS: BG BASE EXCESS 4.1 mmol/L (-2.0-2.0); BG CARBOXYHEMOGLOBIN 0.9 % (0.5-1.5); BG DEOXYHEMOGLOBIN 3.7 % (0.0-5.0); BG FRACTION INSPIRED OXYGEN 21; BG METHEMOGLOBIN 0.3 % (0.0-1.5); BG OXYGEN SATURATION 96.3 % (92.0-98.5); BG OXYHEMOGLOBIN 95.1 % (94.0-97.0); BG PCO2 39.4 mmHg (35.0-45.0); BG PO2 76.5 mmHg (75.0-100.0); BG SAMPLE SITE RIGHT RADIAL; BG VENT MODE ROOM AIR
[2022-10-20] MEDS ORDERED: DIPHENHYDRAMINE 50MG/ML VIAL IV NR (13:00)
[2022-10-20] MEDS ORDERED: LORAZEPAM 2MG/ML CPJ IV NR (13:00)
[2022-10-20] MEDS: QUETIAPINE FUMARATE 50MG TABLET PO SCH ×2 (13:00→20:17)
[2022-10-20] MEDS ORDERED: ADENOSINE 3 MG/ML 2ML VIAL IV ONE ×2 (13:57→14:15)
[2022-10-20] MEDS ORDERED: PIPERACILLIN/TAZOBACTAM 3.375 G in DEXTROSE 5% WATER 50 ML IV SCH (14:00)
[2022-10-20] MEDS: VANCOMYCIN 750MG PREMIX 150 ML IV SCH (14:00)
[2022-10-20] MEDS ORDERED: ADENOSINE 3 MG/ML 2ML VIAL IV NR (14:15)
[2022-10-20 17:10] LABS: CHLORIDE 102 mEq/L (98-107)
[2022-10-20 17:14] LABS: PHOSPHORUS 1.2 mg/dL (2.5-4.9)
[2022-10-20] MEDS ORDERED: MAGNESIUM 1 G PREMIX 100 ML IV NR (19:30)
[2022-10-20] MEDS ORDERED: POTASSIUM PHOS,M-BASIC-D-BASIC 30 MMOL in DEXT 5% WATER 500 ML IV NR (20:30)
[2022-10-20] MEDS: LACTULOSE 20G/30ML UDC PO SCH (21:00)
[2022-10-20] MEDS: ENOXAPARIN 40MG/0.4ML SYR SUBCUT SCH (21:00)
[2022-10-20] MEDS ORDERED: QUETIAPINE FUMARATE 50MG TABLET PO SCH (21:00)
[2022-10-20 22:47] LABS: CHLORIDE 103 mEq/L (98-107)
[2022-10-20 22:52] LABS: PHOSPHORUS 1.8 mg/dL (2.5-4.9)
[2022-10-21] VITALS (17 sets, daily range): BP systolic 99–148; BP diastolic 51–86
[2022-10-21] MEDS: VANCOMYCIN 750MG PREMIX 150 ML IV SCH ×2 (00:27→06:55)
[2022-10-21] MEDS: BLOOD SUGAR DIAGNOSTIC STRIP TEST SCH ×12 (01:00→22:00)
[2022-10-21] MEDS ORDERED: KCL 20MEQ/100ML PREMIX 100 ML IV NR (01:00)
[2022-10-21 05:10] LABS: BASOPHILS % 0.6 % (0.0-2.0); EOSINOPHILS % 0.7 % (0.0-5.0); HEMOGLOBIN. 10.7 g/dL (14.0-18.0); LYMPHOCYTES % 15.5 % (20.0-50.0); MEAN CORPUSCULAR HEMOGLOBIN 25.9 pg (28.0-32.0); MEAN CORPUSCULAR VOLUME 79.8 fL (80.0-94.0); MEAN PLATELET VOLUME 6.5 fl (7.4-10.4); MONOCYTES % 11.1 % (2.0-8.0); NEUTROPHILS % 72.1 % (40.0-76.0); PLATELET 411 x1000/uL (130-400); RED BLOOD CELL COUNT 4.13 mill/uL (4.7-6.1); RED CELL DISTRIBUTION WIDTH 14.6 % (11.6-14.6)
[2022-10-21 05:15] LABS: CHLORIDE 99 mEq/L (98-107)
[2022-10-21 05:20] LABS: PHOSPHORUS 3.2 mg/dL (2.5-4.9); VANCOMYCIN TROUGH 12.7 ug/mL (5.0-10.0)
[2022-10-21] MEDS: GABAPENTIN 300MG CAPSULE PO SCH ×3 (06:55→22:00)
[2022-10-21] MEDS: ARIPIPRAZOLE 5MG TABLET PO SCH (08:10)
[2022-10-21] MEDS: OXCARBAZEPINE 300MG TABLET PO SCH ×2 (08:10→21:00)
[2022-10-21] MEDS: ASPIRIN 81MG EC TABLET PO SCH (08:11)
[2022-10-21] MEDS: QUETIAPINE FUMARATE 50MG TABLET PO SCH ×2 (08:11→16:31)
[2022-10-21] MEDS ORDERED: INSULIN LISPRO 100 UNITS/ML SUBCUT SCH ×2 (10:00→13:20)
[2022-10-21] MEDS ORDERED: BLOOD SUGAR DIAGNOSTIC STRIP TEST SCH ×2 (10:00→13:30)
[2022-10-21] MEDS ORDERED: DEXTROSE 50% WATER 50ML SYRINGE IV PRN ×2 (10:00→13:00)
[2022-10-21 10:28] LABS: CHLORIDE 102 mEq/L (98-107)
[2022-10-21 10:38] LABS: PHOSPHORUS 2.7 mg/dL (2.5-4.9)
[2022-10-21] MEDS: KCL 20MEQ/100ML PREMIX 100 ML IV SCH ×2 (13:26→15:00)
[2022-10-21] MEDS: BUPROPION HCL 150MG SR TABLET PO SCH ×2 (13:27→16:31)
[2022-10-21] MEDS ORDERED: INSULIN GLARGINE 100 UNITS/ML SUBCUT NR (13:30)
[2022-10-21] MEDS: DEXAMETHASONE 10 MG/ML VIAL IV NR ×2 (14:21→14:59)
[2022-10-21] MEDS ORDERED: MORPHINE SULFATE 2 MG/ML CPJ (NOT FOR IM USE) IV NR (14:30)
[2022-10-21] MEDS: HALOPERIDOL LACTATE 5MG/ML VIAL IM PRN (14:31)
[2022-10-21] MEDS: VANCOMYCIN 1G PREMIX 200 ML IV SCH ×2 (15:01→22:00)
[2022-10-21] MEDS: INSULIN LISPRO 100 UNITS/ML SUBCUT SCH ×5 (15:27→22:00)
[2022-10-21] MEDS: HYDROCODONE/ACETAMINOPHEN 5/325MG TABLET PO PRN (17:11)
[2022-10-21] MEDS ORDERED: NALOXONE HCL 0.4MG/ML VIAL IV PRN (17:15)
[2022-10-21] MEDS ORDERED: LORAZEPAM 2MG/ML CPJ IV PRN (17:15)
[2022-10-21] MEDS ORDERED: MORPHINE SULFATE 2 MG/ML CPJ (NOT FOR IM USE) IV PRN (17:15)
[2022-10-21] MEDS ORDERED: ACETAMINOPHEN 325MG TABLET PO PRN (17:15)
[2022-10-21] MEDS: AMPICILLIN SOD/SULBACTAM NA 3 G in SODIUM CHLORIDE 0.9% 100 ML IV SCH (19:18)
[2022-10-21] MEDS: FAMOTIDINE 20MG/2ML VIAL IV SCH (21:00)
[2022-10-21] MEDS: LACTULOSE 20G/30ML UDC PO SCH (21:00)
[2022-10-21] MEDS: ENOXAPARIN 40MG/0.4ML SYR SUBCUT SCH (21:00)
[2022-10-21] MEDS ORDERED: ALBUTEROL (0.083%) 2.5MG/3ML NEB HHN PRN (21:30)
[2022-10-21] MEDS ORDERED: IPRATROPIUM BROMIDE (0.02%) 0.5MG/2.5ML NEB HHN PRN (21:30)
[2022-10-21] MEDS: INSULIN GLARGINE 100 UNITS/ML SUBCUT SCH (22:00)
[2022-10-21] MEDS ORDERED: *PATIENT'S OWN MEDICATION STORAGE XX SCH (23:45)
[2022-10-22] MEDS: BLOOD SUGAR DIAGNOSTIC STRIP TEST SCH ×6 (01:25→22:34)
[2022-10-22] MEDS: INSULIN LISPRO 100 UNITS/ML SUBCUT SCH ×8 (01:25→22:21)
[2022-10-22] MEDS: VANCOMYCIN 1G PREMIX 200 ML IV SCH ×3 (05:09→22:18)
[2022-10-22] MEDS: AMPICILLIN SOD/SULBACTAM NA 3 G in SODIUM CHLORIDE 0.9% 100 ML IV SCH ×5 (05:09→19:10)
[2022-10-22] MEDS: GABAPENTIN 300MG CAPSULE PO SCH ×3 (05:12→22:18)
[2022-10-22] MEDS: HYDROCODONE/ACETAMINOPHEN 5/325MG TABLET PO PRN ×3 (05:13→17:47)
[2022-10-22 06:13] LABS: BASOPHILS % 0.5 % (0.0-2.0); EOSINOPHILS % 0.3 % (0.0-5.0); HEMATOCRIT. 35.1 % (42.0-52.0); HEMOGLOBIN. 11.4 g/dL (14.0-18.0); MEAN CORPUSCULAR HEMOGLOBIN 26.4 pg (28.0-32.0); MEAN CORPUSCULAR VOLUME 81.4 fL (80.0-94.0); MEAN PLATELET VOLUME 7.2 fl (7.4-10.4); NEUTROPHILS % 77.2 % (40.0-76.0); PLATELET 320 x1000/uL (130-400); RED BLOOD CELL COUNT 4.31 mill/uL (4.7-6.1); RED CELL DISTRIBUTION WIDTH 14.6 % (11.6-14.6)
[2022-10-22 09:08] LABS: CHLORIDE 95 mEq/L (98-107)
[2022-10-22 09:17] LABS: PHOSPHORUS 3.9 mg/dL (2.5-4.9)
[2022-10-22] MEDS: ASPIRIN 81MG EC TABLET PO SCH (10:07)
[2022-10-22] MEDS: ARIPIPRAZOLE 5MG TABLET PO SCH (10:07)
[2022-10-22] MEDS: QUETIAPINE FUMARATE 50MG TABLET PO SCH ×2 (10:08→17:47)
[2022-10-22] MEDS: INSULIN GLARGINE 100 UNITS/ML SUBCUT SCH (10:19)
[2022-10-22] MEDS: SODIUM CHLORIDE 0.9% 1,000 ML IV SCH ×4 (11:33→23:30)
[2022-10-22] MEDS: BUPROPION HCL 150MG SR TABLET PO SCH ×2 (11:33→17:48)
[2022-10-22] MEDS: OXCARBAZEPINE 300MG TABLET PO SCH ×2 (11:33→21:03)
[2022-10-22 12:00] VITALS: BP 110/79
[2022-10-22] MEDS ORDERED: INSULIN LISPRO 100 UNITS/ML SUBCUT NR (12:00)
[2022-10-22 20:00] VITALS: BP 107/59
[2022-10-22] MEDS: LACTULOSE 20G/30ML UDC PO SCH (21:03)
[2022-10-22] MEDS: FAMOTIDINE 20MG TABLET PO SCH (21:03)
[2022-10-22] MEDS: ENOXAPARIN 40MG/0.4ML SYR SUBCUT SCH (21:05)
[2022-10-22] MEDS: HALOPERIDOL LACTATE 5MG/ML VIAL IM PRN (21:23)
[2022-10-22] MEDS ORDERED: INSULIN GLARGINE 100 UNITS/ML SUBCUT SCH (22:00)
[2022-10-23] MEDS: INSULIN LISPRO 100 UNITS/ML SUBCUT SCH ×9 (02:00→20:36)
[2022-10-23] MEDS: BLOOD SUGAR DIAGNOSTIC STRIP TEST SCH ×6 (02:00→20:46)
[2022-10-23] MEDS: GABAPENTIN 300MG CAPSULE PO SCH ×3 (06:00→20:13)
[2022-10-23] MEDS: AMPICILLIN SOD/SULBACTAM NA 3 G in SODIUM CHLORIDE 0.9% 100 ML IV SCH ×6 (06:00→23:48)
[2022-10-23] MEDS: VANCOMYCIN 1G PREMIX 200 ML IV SCH ×3 (06:00→20:28)
[2022-10-23 08:00] VITALS: BP_SYST 140; BP_DIAS 75; BP_DIAS 80
[2022-10-23] MEDS: BUPROPION HCL 150MG SR TABLET PO SCH ×2 (09:56→17:48)
[2022-10-23] MEDS: ARIPIPRAZOLE 5MG TABLET PO SCH (09:57)
[2022-10-23] MEDS: QUETIAPINE FUMARATE 50MG TABLET PO SCH ×2 (09:57→17:49)
[2022-10-23] MEDS: ASPIRIN 81MG EC TABLET PO SCH (09:57)
[2022-10-23] MEDS: OXCARBAZEPINE 300MG TABLET PO SCH ×2 (09:57→20:12)
[2022-10-23] MEDS: HYDROCODONE/ACETAMINOPHEN 5/325MG TABLET PO PRN ×2 (09:57→20:13)
[2022-10-23] MEDS: SODIUM CHLORIDE 0.9% 1,000 ML IV SCH ×2 (10:01→19:13)
[2022-10-23 12:00] VITALS: BP 131/69
[2022-10-23] MEDS: MORPHINE SULFATE 2 MG/ML CPJ (NOT FOR IM USE) IV PRN ×3 (14:52→23:48)
[2022-10-23 16:00] VITALS: BP 109/82
[2022-10-23 16:31] LABS: BASOPHILS % 0.5 % (0.0-2.0); EOSINOPHILS % 1.8 % (0.0-5.0); HEMATOCRIT. 34.4 % (42.0-52.0); LYMPHOCYTES % 25.7 % (20.0-50.0); MEAN CORPUSCULAR HEMOGLOBIN 26.1 pg (28.0-32.0); MEAN CORPUSCULAR VOLUME 81.8 fL (80.0-94.0); MONOCYTES % 9.5 % (2.0-8.0); NEUTROPHILS % 62.5 % (40.0-76.0); PLATELET 355 x1000/uL (130-400); RED CELL DISTRIBUTION WIDTH 14.4 % (11.6-14.6)
[2022-10-23 16:44] LABS: CHLORIDE 95 mEq/L (98-107)
[2022-10-23 16:48] LABS: PHOSPHORUS 2.7 mg/dL (2.5-4.9)
[2022-10-23 20:00] VITALS: BP 149/86
[2022-10-23] MEDS: LACTULOSE 20G/30ML UDC PO SCH (20:12)
[2022-10-23] MEDS: FAMOTIDINE 20MG TABLET PO SCH (20:13)
[2022-10-23] MEDS: ENOXAPARIN 40MG/0.4ML SYR SUBCUT SCH (20:13)
[2022-10-24] VITALS: BP 139/81
[2022-10-24] MEDS: ARIPIPRAZOLE 5MG TABLET PO SCH ×3 (00:04→21:00)
[2022-10-24] MEDS: INSULIN GLARGINE 100 UNITS/ML SUBCUT SCH ×2 (00:11→22:00)
[2022-10-24] MEDS: BLOOD SUGAR DIAGNOSTIC STRIP TEST SCH ×5 (01:11→21:00)
[2022-10-24] MEDS: INSULIN LISPRO 100 UNITS/ML SUBCUT SCH ×7 (01:11→21:00)
[2022-10-24 04:00] VITALS: BP 151/88
[2022-10-24] MEDS: GABAPENTIN 300MG CAPSULE PO SCH ×3 (04:54→22:00)
[2022-10-24] MEDS: MORPHINE SULFATE 2 MG/ML CPJ (NOT FOR IM USE) IV PRN ×4 (04:54→20:38)
[2022-10-24] MEDS: SODIUM CHLORIDE 0.9% 1,000 ML IV SCH ×2 (04:59→14:05)
[2022-10-24] MEDS: VANCOMYCIN 1G PREMIX 200 ML IV SCH ×3 (05:00→22:00)
[2022-10-24] MEDS: AMPICILLIN SOD/SULBACTAM NA 3 G in SODIUM CHLORIDE 0.9% 100 ML IV SCH ×3 (05:00→17:42)
[2022-10-24 07:44] LABS: HEMATOCRIT. 33.5 % (42.0-52.0); HEMOGLOBIN. 11.1 g/dL (14.0-18.0); MEAN CORPUSCULAR HEMOGLOBIN 26.6 pg (28.0-32.0); MEAN CORPUSCULAR VOLUME 80.5 fL (80.0-94.0); MEAN PLATELET VOLUME 7.2 fl (7.4-10.4); PLATELET 318 x1000/uL (130-400); RED BLOOD CELL COUNT 4.16 mill/uL (4.7-6.1); RED CELL DISTRIBUTION WIDTH 14.6 % (11.6-14.6)
[2022-10-24 08:00] VITALS: BP 124/81
[2022-10-24 08:53] LABS: CHLORIDE 92 mEq/L (98-107)
[2022-10-24] MEDS: QUETIAPINE FUMARATE 50MG TABLET PO SCH ×2 (09:39→17:42)
[2022-10-24] MEDS: BUPROPION HCL 150MG SR TABLET PO SCH ×2 (09:39→17:42)
[2022-10-24] MEDS: ASPIRIN 81MG EC TABLET PO SCH (09:39)
[2022-10-24] MEDS: OXCARBAZEPINE 300MG TABLET PO SCH ×2 (09:49→21:00)
[2022-10-24 12:00] VITALS: BP 122/85
[2022-10-24 14:17] LABS: PLATELET ESTIMATE NORMAL
[2022-10-24 16:00] VITALS: BP 114/69
[2022-10-24 20:38] VITALS: BP 135/86
[2022-10-24] MEDS: LACTULOSE 20G/30ML UDC PO SCH (21:00)
[2022-10-24] MEDS: ENOXAPARIN 40MG/0.4ML SYR SUBCUT SCH (21:00)
[2022-10-24] MEDS: FAMOTIDINE 20MG TABLET PO SCH (21:00)
== END 2022-10-24 21:50 | disposition short-term general hospital (02) | DRG 871 ==
LOC: ER 11:34 → EDBEDREQ 17:52 → EDBEDREQSVC 17:52 → SUPCPDRO 19:32 → EDBEDREQSVC 21:06 → EDBEDREQTM 21:06 → MICUSO 21:56 → CVICU 10-20 18:31 → 7EST 10-21 21:08
PROVIDERS: ADMIT Internal Medicine; ATTEND Internal Medicine
PROC: 02H633Z Insertion of Infusion Device into Right Atrium, Percutaneous Approach (ICD-10-PCS; principal; 2022-10-20)
PROC: B548ZZA Ultrasonography of Superior Vena Cava, Guidance (ICD-10-PCS; 2022-10-20)
DX: A41.9 Sepsis, unspecified organism (principal); E11.10 Type 2 diabetes mellitus with ketoacidosis without coma; E43 Unspecified severe protein-calorie malnutrition; G92.8 Other toxic encephalopathy; E87.1 Hypo-osmolality and hyponatremia; E87.4 Mixed disorder of acid-base balance; L03.211 Cellulitis of face; L02.611 Cutaneous abscess of right foot; M86.9 Osteomyelitis, unspecified; L02.01 Cutaneous abscess of face; I47.1 Supraventricular tachycardia; D64.9 Anemia, unspecified; D75.839 Thrombocytosis, unspecified; E11.621 Type 2 diabetes mellitus with foot ulcer; F25.0 Schizoaffective disorder, bipolar type; G25.81 Restless legs syndrome; K13.0 Diseases of lips; F17.200 Nicotine dependence, unspecified, uncomplicated; E87.6 Hypokalemia; Z20.822 Contact with and (suspected) exposure to COVID-19; E11.69 Type 2 diabetes mellitus with other specified complication; K08.9 Disorder of teeth and supporting structures, unspecified; L97.519 Non-pressure chronic ulcer of other part of right foot with unspecified severity; L97.529 Non-pressure chronic ulcer of other part of left foot with unspecified severity; G40.909 Epilepsy, unspecified, not intractable, without status epilepticus; Z59.00 Homelessness unspecified; Z85.07 Personal history of malignant neoplasm of pancreas; Z79.4 Long term (current) use of insulin; Z68.23 Body mass index [BMI] 23.0-23.9, adult
CPT/HCPCS: 36415; 36573; 36600; 70487; 71045; 73630; 80048; 80053; 80061; 80202; 80305; 80320; 81003; 82010; 82375; 82550; 82553; 82728; 82805; 82962; 83036; 83540; 83550; 83605; 83735; 83930; 84100; 84145; 84439; 84443; 84481; 84484; 85025; 87426; 93005; 93923; 99291; C1725; J0153; J0295; J1100; J1200; J1630; J1650; J1815; J2060; J2270; J2543; J3370; J3475; J3480; J3490; J7030; J7050; J7060; Q9967; A4315; G0480